=== PATIENT | female | born 1965 | race Caucasian/White ===

== ENCOUNTER 2016-12-17 10:56 | Emergency (ER) | payer OTHER ==
[~2016-12-17 10:56] MED LIST: LEVO.05 PO; TYLE3 PO; VENL25TA14 PO
[2016-12-17] MEDS ORDERED: IOHEXOL 350 MG/ML 10 ML VIAL (for RAD DIAG) IVCONTRAST ONE (12:57)
[2016-12-17 14:33] LABS: HEMATOCRIT 37.6 % (35.0-46.0); MEAN CORPUSCULAR HGB CONC 33.7 % (32.0-36.0); PLATELET COUNT 245 TH/MM3 (150-450); RED BLOOD COUNT 4.09 MIL/MM3 (4.00-5.30); RED CELL DISTRIBUTION WIDTH 13.1 % (11.6-17.2); WHITE BLOOD COUNT 6.9 TH/MM3 (4.0-11.0)
[2016-12-17 14:34] LABS: AUTOMATED NEUTROPHIL # 4.7 TH/MM3 (1.8-7.7); BASOPHIL # 0.1 TH/MM3 (0-0.2); BASOPHIL % 0.9 % (0.0-2.0); EOSINOPHIL % 0.5 % (0.0-4.0); HEMO FLAGS DIFF FINAL; LYMPH % 23.3 % (9.0-44.0); LYMPHOCYTE # 1.6 TH/MM3 (1.0-4.8); MONO % 6.6 % (0.0-8.0); NEUT % 68.7 % (16.0-70.0)
[2016-12-17 14:36] LABS: BLOOD UREA NITROGEN 10 MG/DL (7-18); GLOMERULAR FILTRATION RATE 106 ML/MIN (>89)
[2016-12-17 14:37] LABS: ALKALINE PHOSPHATASE 67 U/L (45-117); ALT (GPT) 24 U/L (10-53); AST (GOT) 17 U/L (15-37)
[2016-12-17 14:38] LABS: ANION GAP 7 MEQ/L (5-15); BICARBONATE 27.8 MEQ/L (21.0-32.0); CHLORIDE 103 MEQ/L (98-107); SODIUM (NA) 138 MEQ/L (136-145); TOTAL BILIRUBIN ADULT 0.4 MG/DL (0.2-1.0)
[2016-12-17 14:42] LABS: BLOOD, URINE TRACE (NEG); GLUCOSE,URINE NEG (NEG); KETONE, URINE NEG (NEG); URINE COLOR YELLOW (YELLW/STRAW)
[2016-12-17 14:43] LABS: BACTERIA, URINE FEW /hpf; COMMENT (UR) CULT NOT INDICATED; CULTURE IF INDICATED CULT NOT INDICATED; NITRITE,URINE NEG (NEG); RBC, URINE 0-3 /hpf (0-3); SQUAMOUS EPITHELIAL CELL URINE 0-5 /hpf (0-5); WBC, URINE 0-2 /hpf (0-5)
[2016-12-17] MEDS ORDERED: SODIUM CHLORIDE 0.9% FLUSH 10 ML FLUSH IV FLUSH PRN (14:45)
--- NOTE | 2016-12-17 14:50 | RADRPT ---
EXAM DATE/TIME: 12/17/2016 12:57 [place] COMPARISON: No previous studies available for comparison. INDICATIONS : Left lower quadrant pain. Evaluate for diverticulitis. IV CONTRAST: 95 cc Omnipaque 350 (iohexol) IV ORAL CONTRAST: Prescribed oral contrast ingested. RADIATION DOSE: 12.74 CTDIvol (mGy) MEDICAL HISTORY : None SURGICAL HISTORY : Tubal ligation. Hysterectomy. ENCOUNTER: Initial ACUITY: 1 week PAIN SCALE: 5/10 LOCATION: Left lower quadrant TECHNIQUE: Volumetric scanning of the abdomen and pelvis was performed. Using automated exposure control and ad justment of the mA and/or kV according to patient size, radiation dose was kept as low as reasonably achievable to obtain optimal diagnostic quality images. DICOM format image data is available electro nically for review and comparison. FINDINGS: LOWER LUNGS: The visualized lower lungs are clear. LIVER: Homogeneous density without lesion. There is no dilation of the biliary tree. No calcified gallston es. SPLEEN: Normal size without lesion. PANCREAS: Within normal limits. KIDNEYS: Normal in size and shape. There is no mass, stone or hydronephrosis. ADRENAL GLANDS: Within normal limits. VASCULAR: There is no aortic aneurysm. BOWEL/MESENTERY: The stomach, small bowel, and colon demonstrate no acute abnormality. There is no free intraperitone al air or fluid. ABDOMINAL WALL: Within normal limits. RETROPERITONEUM: There is no lymphadenopathy. BLADDER: No wall thickening or mass. REPRODUCTIVE: Within normal limits. Uterus is absent. INGUINAL: There is no lymphadenopathy or hernia. MUSCULOSKELETAL: Within normal limits for patient age. CONCLUSION: 1. No acute inflammatory process. 2. Status post hysterectomy. Carl Chandra MD on December 17, 2016 at 13:11 Board Certified Radiologist. This report was verified electronically.
[2016-12-17] MEDS ORDERED: CIPR-9 PO (14:54)
[2016-12-17] MEDS ORDERED: METR-1 PO (14:54)
--- NOTE | 2016-12-17 14:55 | PD ---
HPI Chief Complaint: abdominal pain Time Seen by Provider: 14:39 Travel History International Travel<30 days: No Contact w/Intl Traveler<30days: No Traveled to known affect area: No History of Present Illness HPI Patient presents with complaints of left lower quadrant abdominal pain for one week. 3 out of 10 pain. Mild nausea. One episode of vomiting. Denies any change in her bowels. Denies any blood per emesis or stool. Reports mild pain with urination. History of partial hysterectomy. Denies . Denies any chest pain shortness of breath. Denies fever. PFSH Past Medical History Thyroid Disease: Yes Menopausal: Yes : 3 Para: 2 Miscarriage: 1 Tubal Ligation: Yes Past Surgical History Hysterectomy: Yes Tonsillectomy: Yes Other Surgery: Yes (BUNIONECTOMY RIGHT FOOT) Social History Alcohol Use: Yes (4-5 NIGHTS A WEEK) Tobacco Use: No Allergies-Medications (Allergen,Severity, Reaction): Coded Allergies: No Known Allergies (Verified , 03/27/10) Reported Meds & Prescriptions Reported Meds & Active Scripts Active Tylenol #3 (Acetaminophen/Codeine Phosphate) 300 Mg/30 Mg Tab 1-2 Tab PO Q6HPRN Reported Effexor (Venlafaxine HCl) 25 Mg Tab 0 PO UNKNOWN DOSE Synthroid (Levothyroxine Sodium) 50 Mcg Tab 50 Mcg PO DAILY Review of Systems General / Constitutional: No: Fever Eyes: No: Visual changes HENT: No: Headaches Cardiovascular: No: Chest Pain or Discomfort Respiratory: No: Shortness of Breath Gastrointestinal: Positive: Nausea, Vomiting, Abdominal Pain Genitourinary: No: Dysuria Musculoskeletal: No: Pain Skin: No Rash Neurologic: No: Weakness Psychiatric: No: Depression Endocrine: No: Polydipsia Hematologic/Lymphatic: No: Easy Bruising Physical Exam Narrative GENERAL: Well-nourished, well-developed patient. SKIN: Focused skin assessment warm/dry. HEAD: Normocephalic. EYES: No scleral icterus. No injection or drainage. NECK: Supple, trachea midline. No JVD or lymphadenopathy. CARDIOVASCULAR: Regular rate and rhythm without murmurs, gallops, or rubs. RESPIRATORY: Breath sounds equal bilaterally. No accessory muscle use. GASTROINTESTINAL: Abdomen soft, diffusely tender left lower quadrant, nondistended. MUSCULOSKELETAL: No cyanosis, or edema. BACK: Nontender without obvious deformity. No CVA tenderness. Data Data Orders Orders Complete Blood Count With Diff (12/17/16 11:42) Comprehensive Metabolic Panel (12/17/16 11:42) Urinalysis - C+S If Indicated (12/17/16 12:04) Ct Abd/Pel W Iv Contrast(Rout) (12/17/16 14:39) Iv Access Insert/Monitor (12/17/16 14:39) Ecg Monitoring (12/17/16 14:39) Oximetry (12/17/16 14:39) Sodium Chloride 0.9% Flush (Ns Flush) (12/17/16 14:45) Labs Laboratory Tests Test 12/17/16 11:42 12/17/16 12:04 White Blood Count 6.9 TH/MM3 Red Blood Count 4.09 MIL/MM3 Hemoglobin 12.7 GM/DL Hematocrit 37.6 % Mean Corpuscular Volume 92.0 FL Mean Corpuscular Hemoglobin 31.0 PG Mean Corpuscular Hemoglobin Concent 33.7 % Red Cell Distribution Width 13.1 % Platelet Count 245 TH/MM3 Mean Platelet Volume 8.4 FL Neutrophils (%) (Auto) 68.7 % Lymphocytes (%) (Auto) 23.3 % Monocytes (%) (Auto) 6.6 % Eosinophils (%) (Auto) 0.5 % Basophils (%) (Auto) 0.9 % Neutrophils # (Auto) 4.7 TH/MM3 Lymphocytes # (Auto) 1.6 TH/MM3 Monocytes # (Auto) 0.5 TH/MM3 Eosinophils # (Auto) 0.0 TH/MM3 Basophils # (Auto) 0.1 TH/MM3 CBC Comment DIFF FINAL Differential Comment Blood Urea Nitrogen 10 MG/DL Creatinine 0.60 MG/DL Random Glucose 86 MG/DL Total Protein 7.3 GM/DL Albumin 3.5 GM/DL Calcium Level 8.3 MG/DL Alkaline Phosphatase 67 U/L Aspartate Amino Transf (AST/SGOT) 17 U/L Alanine Aminotransferase (ALT/SGPT) 24 U/L Total Bilirubin 0.4 MG/DL Sodium Level 138 MEQ/L Potassium Level 4.0 MEQ/L Chloride Level 103 MEQ/L Carbon Dioxide Level 27.8 MEQ/L Anion Gap 7 MEQ/L Estimat Glomerular Filtration Rate 106 ML/MIN MDM Medical Decision Making Medical Screen Exam Complete: Yes Emergency Medical Condition: Yes Differential Diagnosis Diverticulitis, ovarian cyst, UTI, partial small bowel obstruction Narrative Course assessment and plan discussed with patient and daughter at bedside. CBC was within normal limits. CMP within normal limits. Urinalysis was negative. CT the abdomen and pelvis with oral contrast revealed no acute inflammatory process status post hysterectomy. Diagnosis Primary Impression: Abdominal discomfort in left lower quadrant Additional Instructions: Encouraged a high fiber bland BRAT diet. Encouraged fluids. Short course of antibiotics as clinically this does appear to be diverticulitis. Encouraged to follow-up with PCP for further evaluation. Encouraged to return to emergency room if any onset of new symptoms. Med/Other Pt SpecificInfo: Prescription(s) given Scripts Metronidazole (Flagyl) 500 Mg Tab 500 MG PO BID for Infection for 7 Days, TAB 0 Refills Prov: Parker Arreguin MD 12/17/16 Ciprofloxacin (Cipro) 500 Mg Tab 500 MG PO BID for Infection for 7 Days, TAB 0 Refills Prov: Parker Arreguin MD 12/17/16 Disposition: 01 DISCHARGE HOME Condition: Good Parker Arreguin MD Dec 17, 2016 14:55
[2016-12-17] MEDS ORDERED: HYDR-3516 PO (15:01)
== END 2016-12-17 15:18 | disposition home or self-care (01) ==
LOC: PHED 11:26
DX: R10.32 Left lower quadrant pain (principal); Z90.710 Acquired absence of both cervix and uterus; E07.9 Disorder of thyroid, unspecified
CPT/HCPCS: 74177; 80053; 81001; 85025; 99285; Q9967